=== PATIENT | female | born 1965 | race Caucasian/White ===

== ENCOUNTER 2017-01-01 17:56 | Emergency (ER) | payer SELFPAY ==
[~2017-01-01] VITALS: Ht 162.6 cm; Wt 78.5 kg
[2017-01-01 18:07] VITALS: BP 160/74
--- NOTE | 2017-01-01 19:02 | RADIOLOGY REPORT ---
EXAMINATION: Right knee and left ankle. CLINICAL INFORMATION: Status post fall with pain. COMPARISON: None TECHNIQUE: AP, lateral, and mortise views of the left ankle. Right knee 4 views. FINDINGS: RIGHT KNEE: There is no visible acute fracture, dislocation or soft tissue abnormality. There is no suprapatellar joint effusion seen. RIGHT ANKLE: There is mild lateral malleolar soft tissue swelling. There is no visible acute fracture or dislocation. The ankle mortise and subtalar joints are normal. A small calcaneal heel and retrocalcaneal spurs are noted. IMPRESSION: Unremarkable right knee exam Small calcaneal heel and retrocalcaneal spurs. No visible fracture or dislocation seen.
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
== END 2017-01-01 19:39 ==
LOC: ERH 17:56
DX: S93.402A Sprain of unspecified ligament of left ankle, initial encounter (principal); W19.XXXA Unspecified fall, initial encounter; X50.9XXA Other and unspecified overexertion or strenuous movements or postures, initial encounter; Y93.9 Activity, unspecified; Y92.830 Public park as the place of occurrence of the external cause
CPT/HCPCS: 73562-RT; 73610-LT